=== PATIENT | female | born 1985 | race Asian ===

== ENCOUNTER → 2017-03-04 | Outpatient (CLI) | payer OTHER ==
[2017-03-04 16:48] LABS: BASOPHIL % 0.2 % (0.0-0.2); EOSINOPHIL # 0.1 10^3/uL (0.0-0.2); EOSINOPHIL % 0.6 % (0.0-5.0); HEMATOCRIT 40.5 % (36.0-46.0); HEMOGLOBIN 14.1 g/dL (12.0-15.0); MEAN CELL HGB 31.9 pg (26-34); MEAN CELL HGB CONCENTRATION 34.8 g/dL (33-37); MEAN CORP VOLUME 91.6 fL (78-100); MEAN PLATELET VOLUME 8.5 fL (7.8-11.0); MONOCYTES # 0.7 10^3/uL (0.3-0.8); MONOCYTES % 6.4 % (5.0-12.0); NEUTROPHIL # 8.1 10^3/uL (1.8-7.7); NEUTROPHILS % 74.4 % (41.0-85.0); RED CELL DISTRIBUTION WIDTH 12.4 % (11.5-14.5); WHITE BLOOD CELL 10.9 10^3/uL (4.5-11.0)
== END | disposition home or self-care (01) ==
LOC: LAB 16:19
PROVIDERS: ATTEND Hospitalist
DX: Z34.81 Encounter for supervision of other normal pregnancy, first trimester (principal); Z3A.09 9 weeks gestation of pregnancy
CPT/HCPCS: 36415; 85025; 86592; 86762; 86787; 86803; 86885; 86900

== ENCOUNTER → 2017-05-07 | Outpatient (CLI) | payer OTHER | END | disposition home or self-care (01) | LOC: RAD 11:36 | PROVIDERS: ATTEND Hospitalist | DX: Z34.82 Encounter for supervision of other normal pregnancy, second trimester (principal); Z3A.18 18 weeks gestation of pregnancy | CPT/HCPCS: 76811 ==

== ENCOUNTER → 2017-09-03 | Outpatient (CLI) | payer OTHER | END | disposition home or self-care (01) | LOC: LAB 10:48 | PROVIDERS: ATTEND Hospitalist | DX: Z34.83 Encounter for supervision of other normal pregnancy, third trimester (principal); Z3A.35 35 weeks gestation of pregnancy | CPT/HCPCS: 36415; 86592 ==

== ENCOUNTER → 2017-09-10 | Outpatient (CLI) | payer OTHER ==
--- NOTE | 2017-09-10 13:11 | DIREP ---
PROCEDURE:US BIOPHYSICAL PROFILE W/O NON STRESS COMPARISON:[facility], US, US OB 2 3TRI DETAILED TRANSABD, 05/07/2017, 11:15 AM. INDICATIONS:Z87.42 HX OF OTHER DISEASES OF THE FEMAL GENITAL TRACT FINDINGS: Breathing:Normal, 2. Movement:Normal, 2. Tone:Normal, 2. Fluid:Normal, 2. Fetus Summary Estimated Weight:3269.21 g; 87.1% Heart Rate:152 1/min Gestational Age (BPD):9.2 cm; 37 weeks, 3 days; 85.5% Gestational Age (HC):33.1 cm; 37 weeks, 5 days; 57.3% Gestational Age (AC):34.5 cm; 38 weeks, 3 days; >97% Gestational Age (FL):7.0 cm; 36 weeks, 0 days; 36.9% Amniotic Sac Amniotic Fluid Index:8.24 cm Pelvis and Uterus Cervix Length:3.27 cm EGA based on biometrics:37 weeks, 3 days FLORA based on biometrics:September 28, 2017 Clinical GA:36 weeks, 2 days Clinical FLORA:October 06, 2017 Biophysical profile score of 8/8 Position: Cephalic. Placental Location: Fundal. Previa: None demonstrated. CONCLUSION: 1. Single, live, intrauterine gestation with an estimated sonographic age of 37 weeks 3 days. 2. Biophysical profile score of 8/8 Dictated by: LANDON Physician on 09/10/2017 at 12:08 PM ld
== END | disposition home or self-care (01) ==
LOC: OPOB 10:44
PROVIDERS: ATTEND Hospitalist
DX: Z34.83 Encounter for supervision of other normal pregnancy, third trimester (principal); Z3A.37 37 weeks gestation of pregnancy; Z87.42 Personal history of other diseases of the female genital tract
CPT/HCPCS: 76815; 76819

== ENCOUNTER 2017-09-22 01:03 | Inpatient (IN) | payer OTHER ==
[~2017-09-22] VITALS: Ht 162.6 cm; Wt 75.7 kg
[2017-09-22] VITALS (7 sets, daily range): BP systolic 97–108; BP diastolic 52–74
[2017-09-22] MEDS ORDERED: LACTATED RINGERS 1,000 ML ONE ×3 (01:53→11:58)
[2017-09-22 01:55] LABS: BASOPHIL % 0.3 % (0.0-0.2); EOSINOPHIL # 0.1 10^3/uL (0.0-0.2); EOSINOPHIL % 0.4 % (0.0-5.0); HEMOGLOBIN 13.4 g/dL (12.0-15.0); LYMPHOCYTES # 1.8 10^3/uL (1.0-4.8); LYMPHOCYTES % 14.8 % (24.0-44.0); MEAN CELL HGB 33.8 pg (26-34); MEAN CELL HGB CONCENTRATION 34.5 g/dL (33-37); MEAN CORP VOLUME 97.7 fL (78-100); MEAN PLATELET VOLUME 8.7 fL (7.8-11.0); MONOCYTES # 1.1 10^3/uL (0.3-0.8); MONOCYTES % 9.6 % (5.0-12.0); NEUTROPHIL # 8.7 10^3/uL (1.8-7.7); NEUTROPHILS % 73.4 % (41.0-85.0); WHITE BLOOD CELL 11.8 10^3/uL (4.5-11.0)
[2017-09-22] MEDS ORDERED: LACTATED RINGERS 1,000 ML IV SCH (02:00)
--- NOTE | 2017-09-22 02:05 | PCM.HP ---
OB - Chief Complaint & HPI Date of Admission: Date of Admission: Sep 22, 2017 at 01:03 Diagnosis Beulah ("Debora") is a cain 32yo [place] female with PNC with me at my office at [facility] who presents this morning to L&D in active labor. She is 38 0/7 weeks' gestation. She is 4cm's dilatation. She has a h/o C/S X 1 performed in [place]. We will go ahead and perform her repeat C/S this morning. Chief Complaint/History : 2 Para: 1 EDC: Oct 06, 2017 EGA: 38 0/7 Reason for admission: active labor, section Indication for : desires repeat Admission Nurse Assessment Rev: Yes OB - History Hx of Present Care: Good Care Ultrasounds: Normal mid trimester US Obstetrical Complications: None Medical Complications: None Past Family/Social History * Past Medical, Surgical, Family and Obstetric Histories reviewed from chart. OB - Admission Exam Physical Exam HEENT: NCAT Lungs: Clear Abdomen: Gravid Extremities: Normal Reflexes: Normal Cervical Dilatation: 4cm Effacement: 50% Station: -2 Membranes: Intact Heart Rate: 140's Accelerations: Accelerations Present Decelerations: No Decelerations [facility] Variability: Average (6-25) Contractions on Admission: < 5 Minutes Apart Intensity: Moderate Presentation: vtx OB - Assessment/Plan Assessment Assessment: section Plan Plan: Section MYRIAM MUSTAFA MD Sep 22, 2017 02:05
[2017-09-22] MEDS ORDERED: BENADRYL ONE (02:15)
[2017-09-22] MEDS ORDERED: VERSED ONE (02:15)
[2017-09-22] MEDS ORDERED: DURAMORPH ONE (02:15)
[2017-09-22] MEDS ORDERED: TORADOL ONE ×3 (02:15→20:33)
[2017-09-22] MEDS: LACTATED RINGERS 1,000 ML IV SCH ×2 (02:15→03:04)
[2017-09-22] MEDS ORDERED: ZOFRAN ONE ×2 (02:15→03:50)
[2017-09-22] MEDS ORDERED: LR/PITOCIN 500 ML IV ONE ×2 (02:16→03:40)
[2017-09-22] MEDS ORDERED: EPHEDRINE SULFATE ONE (02:16)
[2017-09-22] MEDS ORDERED: SUBLIMAZE ONE (02:17)
[2017-09-22] MEDS ORDERED: LEVAQUIN 100 ML IV ONE ×2 (02:27→03:30)
[2017-09-22] MEDS ORDERED: REGLAN IV PRN (02:30)
[2017-09-22] MEDS ORDERED: NORCO 5MG PO PRN (02:30)
[2017-09-22] MEDS ORDERED: NARCAN IV PRN (02:30)
[2017-09-22] MEDS ORDERED: BENADRYL IV PRN ×2 (02:30)
[2017-09-22] MEDS ORDERED: MORPHINE SULFATE IV PRN (02:30)
[2017-09-22] MEDS ORDERED: ZOFRAN IV PRN ×2 (02:30→04:00)
[2017-09-22] MEDS ORDERED: SUBLIMAZE IV PRN (02:30)
[2017-09-22] MEDS ORDERED: NORCO 10MG PO PRN (02:30)
[2017-09-22] MEDS ORDERED: NUBAIN IV PRN (02:30)
[2017-09-22] MEDS ORDERED: DEMEROL IV PRN ×2 (02:30→04:00)
[2017-09-22] MEDS ORDERED: DILAUDID IV PRN ×2 (02:30→04:00)
[2017-09-22 02:34] LABS: BILIRUBIN,URINE NEGATIVE (NEGATIVE); UROBILINOGEN,URINE NORMAL (NEGATIVE)
[2017-09-22 02:35] LABS: APPEARANCE,URINE CLEAR (CLEAR); UA COLOR YELLOW (YELLOW)
[2017-09-22] MEDS ORDERED: DEMEROL ONE ×2 (02:40→10:33)
[2017-09-22] MEDS ORDERED: DECADRON ONE (03:50)
[2017-09-22] MEDS ORDERED: PITOCIN 0.02 UNIT in LACTATED RINGERS 1 ML IV SCH (03:53)
[2017-09-22] MEDS ORDERED: AMBIEN PO PRN (04:00)
[2017-09-22] MEDS ORDERED: MILK OF MAGNESIA PO PRN (04:00)
[2017-09-22] MEDS ORDERED: ZOFRAN ODT SL PRN (04:00)
[2017-09-22] MEDS ORDERED: NORCO 7.5MG PO PRN (04:00)
[2017-09-22] MEDS ORDERED: PHENERGAN IV PRN (04:00)
[2017-09-22] MEDS ORDERED: BENADRYL PO PRN (04:00)
[2017-09-22] MEDS ORDERED: GAVISCON ES TABLET CHEW PO PRN (04:00)
--- NOTE | 2017-09-22 04:05 | PRM.OPH ---
Immediate Post Op Note Summary of Operation Date: Sep 22, 2017 Time: 03:59 Pre-Operative DX: IUP @ 38 0/7 WKS; H/O C/S X 1; ACTIVE LABOR Post-OP DX: SAME Anesth.Used: SPINAL Indications: REPEAT LOW TRANSVERSE SECTION VIA PFANNENSTIEL; SCAR REVISION Physician's Summary: Healthy-appearing liveborn female infant in ROT position, loose body cord X 1, clear-colored fluid/membranes throughout. Baby girl born at 0313, scores of 8 and 9, weight 6# 10.2oz (= 3012g). Good cry heard in delivery room. Normal-appearing placenta. Normal-appearing uterus (no scar tissue seen in pelvis), tubes bilaterally, ovaries bilaterally. Pt tolerated procedure very well. Prevena wound vac used as a wound dressing. Assistants: Listed Assisting Physicians JAVIER HAQUE [employer] HAND FINISHER; BRONSON WOOTEN [employer] HAND FINISHER Anesthesiologist/BUSINESS UNIT LEADER ESTEFANI SCHRADER CRNA Specimen(s) Removed: List Specimen: NONE SENT Estimated Blood Loss: EBL/ESTIMATED BLOOD LOSS: (MIL: 600 Complications: Complications: NONE Assessment & Plan: Update Surgical HX/Problems: (1) Status post repeat low transverse section (2) 38 weeks gestation of (3) H/O: section (4) Active labor at term Assessment & Plan: Routine postop care. MYRIAM MUSTAFA MD Sep 22, 2017 04:04
[2017-09-22] MEDS ORDERED: TORADOL IV SCH (06:00)
[2017-09-22] MEDS: TORADOL IV SCH ×3 (06:45→20:44)
[2017-09-22] MEDS ORDERED: LR/PITOCIN 500 ML IV SCH (09:00)
[2017-09-22] MEDS ORDERED: PRENATAL VITAMIN TABLET PO ONE (11:58)
[2017-09-22] MEDS: PRENATAL VITAMIN TABLET PO SCH (12:00)
[2017-09-23] MEDS ORDERED: LEVAQUIN 100 ML IV SCH (02:00)
[2017-09-23] MEDS ORDERED: LEVAQUIN 100 ML IV ONE (02:50)
[2017-09-23 05:38] LABS: BASOPHIL % 0.1 % (0.0-0.2); EOSINOPHIL % 0.3 % (0.0-5.0); LYMPHOCYTES # 2.1 10^3/uL (1.0-4.8); LYMPHOCYTES % 15.1 % (24.0-44.0); MEAN CELL HGB 33.5 pg (26-34); MEAN CELL HGB CONCENTRATION 33.5 g/dL (33-37); MEAN PLATELET VOLUME 8.7 fL (7.8-11.0); MONOCYTES # 1.4 10^3/uL (0.3-0.8); MONOCYTES % 10.1 % (5.0-12.0); NEUTROPHIL # 10.1 10^3/uL (1.8-7.7); NEUTROPHILS % 73.5 % (41.0-85.0); WHITE BLOOD CELL 13.7 10^3/uL (4.5-11.0)
[2017-09-23] MEDS ORDERED: MOTRIN ONE ×2 (07:33→19:18)
[2017-09-23] MEDS ORDERED: NORCO 7.5MG PO ONE ×2 (07:34→12:53)
[2017-09-23] MEDS: MOTRIN PO PRN ×2 (07:36→19:22)
[2017-09-23] MEDS: NORCO 7.5MG PO PRN ×2 (07:36→12:55)
--- NOTE | 2017-09-23 07:49 | NUR ---
post op day 1 s/p with duramorph spinal. pt up ambulating. denies any problems related to anesthesia. VSS no anesthesia complications noted at this time
[2017-09-23] MEDS: PRENATAL VITAMIN TABLET PO SCH (09:00)
--- NOTE | 2017-09-23 12:22 | PRM.DC ---
OB Discharge Summary Discharge Summary Discharge Diagnosis: S/P (S/P Repeat C/S at 38 0/7 weeks secondary to being in active labor) Complications: No Complications Abnormal Lab Results Laboratory Tests Test 09/22/17 00:00 09/22/17 01:50 09/23/17 05:24 Urine Collection Type UNKNOWN Urine Color YELLOW Urine Appearance CLEAR Urine Bilirubin NEGATIVE MG/DL Urine Ketones NEGATIVE Urine Specific [place] 1.015 Urine pH 7 Urine Protein NEGATIVE Urine Urobilinogen NORMAL Urine Nitrate NEGATIVE Urine Leukocyte Esterase NEGATIVE Urine Blood NEGATIVE Urine Glucose NORMAL White Blood Count 11.8 10^3/uL 13.7 10^3/uL Red Blood Count 3.97 10^6/uL 3.28 10^6/uL Hemoglobin 13.4 g/dL 11.0 g/dL Hematocrit 38.8 % 32.8 % Mean Corpuscular Volume 97.7 fL 100.0 fL Mean Corpuscular Hemoglobin 33.8 pg 33.5 pg Mean Corpuscular Hemoglobin Concent 34.5 g/dL 33.5 g/dL Red Cell Distribution Width 13.0 % 13.0 % Platelet Count 233 10^3/uL 206 10^3/uL Mean Platelet Volume 8.7 fL 8.7 fL Neutrophils (%) (Auto) 73.4 % 73.5 % Lymphocytes (%) (Auto) 14.8 % 15.1 % Monocytes (%) (Auto) 9.6 % 10.1 % Neutrophils # (Auto) 8.7 10^3/uL 10.1 10^3/uL Lymphocytes # (Auto) 1.8 10^3/uL 2.1 10^3/uL Monocytes # (Auto) 1.1 10^3/uL 1.4 10^3/uL Absolute Immature Granulocyte (auto 0.18 10^3 u/L 0.13 10^3 u/L Eosinophils % 0.4 % 0.3 % Basophils % 0.3 % 0.1 % Basophils # 0.0 10^3/uL 0.0 10^3/uL Eosinophil Count 0.1 10^3/uL 0.0 10^3/uL Percent Immature Gran (Cell Imm) 1.50 % 0.90 % Rapid Plasma Reagin NONREACTIVE Hepatitis B Surface Antigen Negative Hepatitis C Antibody <0.1 s/co ratio HIV-1 Antibody NON-REACTIVE Medications: Other (Rx for [place] 7.5/325 #60 no refills, written on triplicate prescription pad) Discharge Disposition: Stable Discharge Instructions: Pelvic Rest x 6 Weeks, Clinic F/U 1-2 Weeks, Regular Diet, Regular Activity, Meds as Prescribed, Call MD for Problems Additional Comments Prevena wound vac will stay in place X one week. YMRIAM MUSTAFA MD Sep 23, 2017 12:22
[2017-09-23] MEDS ORDERED: HYDR-925 PO (12:23)
[2017-09-23] MEDS ORDERED: IBUP-1131 PO (12:35)
[2017-09-23] MEDS ORDERED: PRENATAL VITAMIN TABLET PO ONE (16:16)
--- NOTE | 2017-09-23 16:25 | NUR ---
scanner scanner x2 will not scan pt bracelet
[2017-09-23] MEDS ORDERED: MILK OF MAGNESIA ONE (20:11)
[2017-09-23] MEDS ORDERED: MILK OF MAGNESIA PO ONE (20:14)
[2017-09-23] MEDS ORDERED: MILK OF MAGNESIA PO PRN (20:30)
[2017-09-24] MEDS ORDERED: NORCO 7.5MG PO ONE (00:40)
[2017-09-24] MEDS: NORCO 7.5MG PO PRN (00:46)
[2017-09-24] MEDS ORDERED: MOTRIN ONE (06:12)
[2017-09-24] MEDS: MOTRIN PO PRN (06:27)
== END 2017-09-24 12:45 | disposition home or self-care (01) | DRG 766 ==
LOC: ATP 01:03 → OBSVTOIN 01:58 → LND 01:58
PROVIDERS: ADMIT Hospitalist; ATTEND Hospitalist
PROC: 10D00Z1 Extraction of Products of Conception, Low, Open Approach (ICD-10-PCS; principal; 2017-09-22 02:00)
DX: O34.211 Maternal care for low transverse scar from previous cesarean delivery (principal); O99.824 Streptococcus B carrier state complicating childbirth; Z37.0 Single live birth; Z3A.38 38 weeks gestation of pregnancy
CPT/HCPCS: 36415; 81002; 85025; 86592; 86762; 86803; 86900; A4338; G0378; J1100; J1200; J1885; J1956; J2175; J2250; J2405; J2550; J2590; J3010; J3490; J7120; J2274